=== PATIENT | male | born 1975 | race Caucasian/White ===

== ENCOUNTER 2020-04-28 19:31 | Emergency (ER) | payer MEDICAID ==
[~2020-04-28] VITALS: Ht 180.3 cm; Wt 77.1 kg
[2020-04-28 19:39] VITALS: Ht 180.3 cm; Wt 77.1 kg
[2020-04-28 23:58] VITALS: BP 140/97
== END 2020-04-28 23:58 | disposition home or self-care (01) ==
LOC: ED 19:31
DX: L03.115 Cellulitis of right lower limb (principal); I10 Essential (primary) hypertension
CPT/HCPCS: J0696; J1885